=== PATIENT | female | born 1965 | race Caucasian/White ===

== ENCOUNTER 2021-11-01 06:08 | Day surgery (SDC) | payer OTHER ==
[~2021-11-01] VITALS: Ht 157.5 cm; Wt 77.1 kg
[2021-11-01] MEDS ORDERED: fentaNYL citrate 0.05 MG/ML VIAL ONE (07:26)
[2021-11-01] MEDS: fentaNYL citrate 0.05 MG/ML VIAL IVP ONE (07:41)
[2021-11-01] MEDS: LIDOCAINE 2% 100 MG/5 ML UJET TP ONE (07:47)
== END 2021-11-01 08:30 | disposition home or self-care (01) ==
LOC: MMU 06:08 → MDS 06:08
PROVIDERS: ATTEND Internal Medicine Gastroenterology
DX: Z12.11 Encounter for screening for malignant neoplasm of colon (principal); K76.0 Fatty (change of) liver, not elsewhere classified; R93.2 Abnormal findings on diagnostic imaging of liver and biliary tract; E11.9 Type 2 diabetes mellitus without complications; I10 Essential (primary) hypertension; E78.00 Pure hypercholesterolemia, unspecified; Z79.84 Long term (current) use of oral hypoglycemic drugs; Z79.899 Other long term (current) drug therapy
CPT/HCPCS: 45378; J3010